=== PATIENT | male | born 1970 | race Caucasian/White ===

== ENCOUNTER 2019-09-18 08:14 | Emergency (ER) | payer OTHER ==
[2019-09-18 08:31] VITALS: TEMP 97.9
--- NOTE | 2019-09-18 08:34 | ED.PDOC ---
History of Present Illness - General Chief Complaint: Respiratory Problem Stated Complaint: can't get over bronchitis, cough congestion Time Seen by Provider: 09/18/19 08:16 Source: patient, RN notes reviewed, Vital Signs reviewed Exam Limitations: no limitations - History of Present Illness Comments: Patient presents for evaluation of cough x 2 weeks. He notes that the cough is productive with yellowish to greenish sputum. Patient does note that the cough has been worsening. He does state that he had a fever with tmax of 102F yesterday. Denies any medical problems. Denies smoking. No recent sick contacts. He has noted myalgias and body aches. He otherwise denies any complaints. Allergies/Adverse Reactions: Allergies NO KNOWN ALLERGY Allergy (Verified 09/18/19 08:31) Home Medications: Ambulatory Orders Albuterol Inhaler [Ventolin Hfa Inhaler] 1 puff INH Q4HR PRN #1 inh 09/18/19 Doxycycline (Monohydrate) [Doxycycline] 100 mg PO BID 7 Days #14 tab 09/18/19 Meloxicam 09/18/19 Rosuvastatin Calcium 09/18/19 Review of Systems - Review of Systems Constitutional: States: fever. Denies: chills EENTM: States: nose congestion. Denies: throat pain Respiratory: States: cough, short of breath Cardiology: Denies: chest pain Gastrointestinal/Abdominal: Denies: nausea, vomiting Genitourinary: Denies: frequency Musculoskeletal: Denies: back pain Skin: Denies: rash Neurological: Denies: weakness Hematologic/Lymphatic: Denies: blood clots Past Medical History (General) - Patient Medical History Hx Asthma: No Hx of COPD: No Hx Cardiac Disorders: No Hx Congestive Heart Failure: No Hx Hypertension: No Hx Diabetes: No Hx Cancer: No - Vaccination History Hx Tetanus, Diphtheria Vaccination: No Hx Influenza Vaccination: No Hx Pneumococcal Vaccination: No Immunizations Up to Date: No - Social History Hx Tobacco Use: No Hx Alcohol Use: Yes - occ Hx Substance Use: No Hx Substance Use Treatment: No Hx Depression: No Family Medical History - Family History Mother Family History: No Known Physical Exam - Physical Exam General Appearance: Alert, Well Developed, Well Groomed, Well Hydrated, Well Nourished, Other - Appears uncomfortable ENT Exam: normal ENT inspection, hearing grossly normal Neck: non-tender, full range of motion, supple, normal inspection Respiratory: chest non-tender, lungs clear, normal breath sounds, no respiratory distress, no accessory muscle use Cardiovascular/Chest: normal peripheral pulses, regular rate, rhythm, no edema Gastrointestinal/Abdominal: normal bowel sounds, non tender, soft, no organomegaly Extremity: normal range of motion Neurologic: alert, normal mood/affect, oriented x 3 Skin Exam: normal color Progress - Progress Progress: DDx: Pneumonia, viral URI, bronchitis, influenza Patient presented for evaluation of cough and SOB. He was non-toxic and hemodynamically stable. CXR was concerning for developing pneumonia. CT was obtained based on radiologist report. There was no signs of electrolyte derangement, SMITHA, or leukocytosis. There was no eosinophilia to suggest eosinophilic pneumonia. CT was concerning for bronchiolitis obliterans and developing pneumonia. Patient will be discharged with albuterol inhaler and doxycycline. Discussed importance of outpatient follow-up. Will give information for family physician follow-up. 09/18/19 08:35 Influenza screen and CXR ordered. 09/18/19 09:20 Discussed findings of CXR. Patient notes that he has lost over thirty pounds in the last two weeks. Also notes that he is not a chronic smoker and has smoked for 8 months (quit three months ago). Given the CXR findings, will obtain an IV and obtain CT chest w/contrast. 09/18/19 10:[address] findings - Results/Orders Results/Orders: Reporting MD: Donte Rubin Repair Department Supervisor date: Dictation date: EXAM DESCRIPTION: Chest w/o Contrast CLINICAL HISTORY: 49 years, Male, Cough x 2 weeks. No previous hx of lung disease. COMPARISON: Chest x-ray September 18, 2019 TECHNIQUE: Thin-section noncontrast axial CT images are obtained according to our protocol. Reconstructed MPR images are created and reviewed as well. FINDINGS: Lungs: Patchy consolidating infiltrates are seen involving the peripheral aspects of the lungs bilaterally. There is also peribronchial vascular involvement in the lower lobes. 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 If the patient has eosinophilia, follow-up x-ray or CT after treatment with steroids should be helpful to see if infiltrates clear. If there is no intussusception affiliate, biopsy may be needed to better evaluate peripheral infiltrates. No worrisome pulmonary mass or nodule to suggest a myron gnant process. Inspiratory and expiratory and prone high-resolution CT images are negative for air trapping. Dependent infiltrates persist on the prone images. On the high resolution thin slice images 1.25 mm in thickness, tiny lucencies are seen in the consolidated areas consistent with fibrotic disorganization of the lobular architecture, bronchiolectasis or both. Infiltrates are denser than usually seen with pulmonary alveolar proteinosis. Subacute or chronic phase of extrinsic allergic alveolitis might also be considered. Mediastinum: Lymph nodes are prominent in number suggesting reactiv e changes. Lymph nodes are not particularly enlarged to suggest malignant process. Normal vascular contours. Heart size is normal with no pericardial effusion. Chest wall/axilla: No mass or adenopathy. Lower neck/supraclavicular: No mass or adenopathy. Upper abdomen: Unremarkable upper abdominal viscera. Coronal and sagittal reformatted images confirm the findings. 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 See above. This exam was performed according to our departmental dose-optimization program, which includes automated exposure control, adjustment of the mA and/or kV according to patient size and/or use of iterative reconstruction technique. Total DLP equals 1113.69 mGycm. Electronically signed by: Donte Rubin MD 09/18/2019 10:34 AM LEAD JAVASCRIPT ENGINEER Workstation: [id number] Reporting MD: Donte Rubin Repair Department Supervisor date: Dictation date: EXAM DESCRIPTION: Chest,2 Views CLINICAL HISTORY: Cough x 2 weeks. Assess for pneumonia COMPARISON: No previous chest x-ray TECHNIQUE: PA/lateral FINDINGS: Heart size is normal with prominent pulmonary vascularity. No pleural effusion or pneumothorax. 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 High-resolution CT of the chest may be helpful. Lateral view shows intact sternum and T-spine. IMPRESSION: Bilateral peripheral pulmonary infiltrates with underlying nodularity. See above. Electronically signed by: Donte Rubin MD 09/18/2019 8:47 AM LEAD JAVASCRIPT ENGINEER Workstation: [id number] Departure - Departure Clinical Impression: Bronchiolitis obliterans Pneumonia Qualifiers: Pneumonia type: due to unspecified organism Laterality: bilateral Lung location: unspecified part of lung Qualified Code(s): J18.9 - Pneumonia, unspecified organism Time of Disposition: 10:46 Disposition: Discharge to Home or Self Care Condition: Fair Departure Forms: ED Discharge - Pt. Copy, Patient Portal Self Enrollment Instructions: DI for Pneumonia -- Adult, Bronchiolitis (and RSV) Prescriptions: Albuterol Inhaler [Ventolin Hfa Inhaler] 1 puff INH Q4HR PRN #1 inh PRN Reason: Shortness Of Breath Doxycycline (Monohydrate) [Doxycycline] 100 mg PO BID 7 Days #14 tab Home Medications: Ambulatory Orders Albuterol Inhaler [Ventolin Hfa Inhaler] 1 puff INH Q4HR PRN #1 inh 09/18/19 Doxycycline (Monohydrate) [Doxycycline] 100 mg PO BID 7 Days #14 tab 09/18/19 Meloxicam 09/18/19 Rosuvastatin Calcium 09/18/19 Comments: Radha Elizabeth #[id number]
--- NOTE | 2019-09-18 08:49 | RAD ---
EXAM DESCRIPTION: Chest,2 Views CLINICAL HISTORY: Cough x 2 weeks. Assess for pneumonia COMPARISON: No previous chest x-ray TECHNIQUE: PA/lateral FINDINGS: Heart size is normal with prominent pulmonary vascularity. No pleural effusion or pneumothorax. 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 High-resolution CT of the chest may be helpful. Lateral view shows intact sternum and T-spine. IMPRESSION: Bilateral peripheral pulmonary infiltrates with underlying nodularity. See above. Electronically signed by: Donte Rubin MD 09/18/2019 8:47 AM [facility]
--- NOTE | 2019-09-18 10:36 | CT ---
EXAM DESCRIPTION: Chest w/o Contrast CLINICAL HISTORY: 49 years, Male, Cough x 2 weeks. No previous hx of lung disease. COMPARISON: Chest x-ray September 18, 2019 TECHNIQUE: Thin-section noncontrast axial CT images are obtained according to our protocol. Reconstructed MPR images are created and reviewed as well. FINDINGS: Lungs: Patchy consolidating infiltrates are seen involving the peripheral aspects of the lungs bilaterally. There is also peribronchial vascular involvement in the lower lobes. 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 If the patient has eosinophilia, follow-up x-ray or CT after treatment with steroids should be helpful to see if infiltrates clear. If there is no intussusception affiliate, biopsy may be needed to better evaluate peripheral infiltrates. No worrisome pulmonary mass or nodule to suggest a malignant process. Inspiratory and expiratory and prone high-resolution CT images are negative for air trapping. Dependent infiltrates persist on the prone images. On the high resolution thin slice images 1.25 mm in thickness, tiny lucencies are seen in the consolidated areas consistent with fibrotic disorganization of the lobular architecture, bronchiolectasis or both. Infiltrates are denser than usually seen with pulmonary alveolar proteinosis. Subacute or chronic phase of extrinsic allergic alveolitis might also be considered. Mediastinum: Lymph nodes are prominent in number suggesting reactive changes. Lymph nodes are not particularly enlarged to suggest malignant process. Normal vascular contours. Heart size is normal with no pericardial effusion. Chest wall/axilla: No mass or adenopathy. Lower neck/supraclavicular: No mass or adenopathy. Upper abdomen: Unremarkable upper abdominal viscera. Coronal and sagittal reformatted images confirm the findings. 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 See above. This exam was performed according to our departmental dose-optimization program, which includes automated exposure control, adjustment of the mA and/or kV according to patient size and/or use of iterative reconstruction technique. Total DLP equals 1113.69 mGycm. Electronically signed by: Donte Rubin MD 09/18/2019 10:34 AM CONFERENCE SERVICES MANAGER
[2019-09-18 10:56] VITALS: BP 122/82; O2SAT 91
== END 2019-09-18 10:56 | disposition home or self-care (01) ==
LOC: ER 08:14
DX: J18.9 Pneumonia, unspecified organism (principal); J84.89 Other specified interstitial pulmonary diseases; Z87.891 Personal history of nicotine dependence

== ENCOUNTER → 2020-01-15 | Outpatient (CLI) | payer OTHER ==
--- NOTE | 2020-01-15 08:23 | RAD ---
EXAM DESCRIPTION: Foot,Right 3 Views CLINICAL HISTORY: 49 years, Male, pain in right foot COMPARISON: None TECHNIQUE: AP, lateral, and oblique views of the right foot FINDINGS: Lateral view shows prominent plantar and dorsal calcaneal enthesophytes. No fracture of the talus or calcaneus. No midfoot malalignment. AP and oblique views show no fracture of the bones of the toes or metatarsals. No midfoot malalignment. Few scattered soft tissue calcifications of the plantar aspect of foot. IMPRESSION: Negative for fracture. Electronically signed by: Donte Rubin MD 01/15/2020 8:21 AM CDT
== END ==
LOC: RAD 07:55
PROVIDERS: ATTEND Orthopaedic Surgery
DX: M79.671 Pain in right foot (principal)

== ENCOUNTER 2020-11-08 11:24 | Emergency (ER) | payer SELFPAY ==
[2020-11-08 11:46] VITALS: BP 181/123; TEMP 97.8; O2SAT 98
--- NOTE | 2020-11-08 12:12 | ED.PDOC ---
History of Present Illness - General Chief Complaint: Abdominal Pain Stated Complaint: upper abdominal pain Time Seen by Provider: 11/08/20 12:09 Information Source: patient Exam Limitations: no limitations - History of Present Illness Initial Comments: PATIENT C/O OF ABD PAIN YESTERDAY THAT HAS PRETTY MUCH RESOLVED TODAY, STATES HE WAS ALSO HURTING IN THE LEFT TESTICLE. HE STATES HE HAS AN UMBILICAL HERNIA, PT DOES NOT REPORT ANY OTHER SYMPTOMS Abdominal Pain Onset Location: epigastric Pain Radiation: no radiation Quality: mild Timing/Duration: 24 hours Improving Factors: nothing - HASN'T TRIED ANYTHING Worsening Factors: nothing Associated Symptoms: denies symptoms Review of Systems - Review of Systems Constitutional: States: no symptoms reported EENTM: States: no symptoms reported Respiratory: States: no symptoms reported Cardiology: States: no symptoms reported Gastrointestinal/Abdominal: States: see HPI Genitourinary: States: no symptoms reported Musculoskeletal: States: no symptoms reported Skin: States: no symptoms reported Neurological: States: no symptoms reported Past Medical History (General) - Patient Medical History Hx Stroke: No Hx Dementia: No Hx Asthma: No Hx of COPD: No Hx Cardiac Disorders: No Hx Congestive Heart Failure: No Hx Hypertension: No Hx Thyroid Disease: No Hx Diabetes: No Hx Gastroesophageal Reflux: Yes Hx Renal Disease: No Hx Cancer: No Hx Hepatitis C: No Surgical History: no surgical history - Vaccination History Hx Tetanus, Diphtheria Vaccination: No Hx Influenza Vaccination: No Hx Pneumococcal Vaccination: No - Social History Hx Tobacco Use: No Hx Alcohol Use: Yes - occ Hx Substance Use: No Hx Substance Use Treatment: No Hx Depression: No Family Medical History - Family History Mother Family History: No Known Physical Exam - Physical Exam General Appearance: Alert, Well Developed, Well Groomed, Well Hydrated, Well Nourished Neck: non-tender, full range of motion, normal inspection Respiratory: chest non-tender, lungs clear, normal breath sounds, no respiratory distress, no accessory muscle use Cardiovascular/Chest: normal peripheral pulses, regular rate, rhythm, no edema, no gallop, no JVD Peripheral Pulses: No deficit Gastrointestinal/Abdominal: normal bowel sounds, non tender, soft, no organomegaly, no pulsatile mass Back Exam: normal inspection, no CVA tenderness, no vertebral tenderness Neurologic: no motor/sensory deficits, alert, normal mood/affect, oriented x 3, abnormal cerebellar tests Progress - Progress Progress: 11/08/20 22:10 ADVISED THE PATIENT THAT HE HAS A BENIGN ABDOMINAL EXAM AND THE SIGNIFICANCE OF THAT FINDING, THAT HE DOES NOT HAVE AN INCARCERATED HERNIA OR A "RUPTURED HERNIA" HE FEARED. OFFERED LAB AND CT SCAN, HE REPORTS THAT LONG HE DOES NOT HAVE A "RUPTURED HERNIA" HE DOES NOT WANT ANY OF THOSE TEST. ADVISED HIM THAT OTHER ABDOMINAL PROBLEMS WERE POSSIBLE AND THAT PERFORMING TESTING WOULD LIKELY RULE OUT EVERY THING ELSE THAT POSED AN IMMEDIATE THREAT, HE DECLINED AT THIS TIME AND STATES HE WOULD RETURN IF THE PAIN RETURNED. 11/08/20 22:13 Departure - Departure Clinical Impression: Umbilical hernia Qualifiers: Obstruction and gangrene presence: without obstruction or gangrene Qualified Code(s): K42.9 - Umbilical hernia without obstruction or gangrene Abdominal pain Qualifiers: Abdominal location: epigastric Qualified Code(s): R10.13 - Epigastric pain GERD (gastroesophageal reflux disease) Qualifiers: Esophagitis presence: esophagitis presence not specified Qualified Code(s): K21.9 - Gastro-esophageal reflux disease without esophagitis Time of Disposition: 12:12 Disposition: Discharge to Home or Self Care Condition: Good Departure Forms: ED Discharge - Pt. Copy, Patient Portal Self Enrollment Instructions: DI for Abdominal Pain-Adult, Acid Reflux and GERD in Adults (DC), Umbilical Hernia, Adult Prescriptions: Omeprazole 40 mg PO DAILY #30 cap Home Medications: Ambulatory Orders Meloxicam 09/18/19 Cyclobenzaprine HCl [Cyclobenzaprine Hydrochlo] 7.5 mg PO 11/08/20 Omeprazole 20 mg PO 11/08/20 Omeprazole 40 mg PO DAILY #30 cap 11/08/20 Additional Instructions: RETURN FOR NEW OR PERSISTENT PAIN.
== END 2020-11-08 12:20 | disposition home or self-care (01) ==
LOC: ER 11:24
DX: K42.9 Umbilical hernia without obstruction or gangrene (principal); K21.9 Gastro-esophageal reflux disease without esophagitis